=== PATIENT | female | born 1960 | race Caucasian/White ===

== ENCOUNTER 2017-08-22 11:55 | Emergency (ER) | payer OTHER ==
[~2017-08-22] VITALS: Ht 152.4 cm; Wt 86.6 kg
[2017-08-22 12:45] VITALS: BP 191/127
--- NOTE | 2017-08-22 12:50 | NUR ---
Patient to bed 02.
--- NOTE | 2017-08-22 13:03 | NUR ---
57F BIB SELF C/O HIGH BLOOD PRESSURE X 15 DAYS; PT C/O INTERMITTENT BLURRY VISION WITH DIZZINESS, BUT STATES NO BLURRY VISION AT THIS TIME; PT C/O DIARRHEA X 1 WEEK, WITH NO BOWEL MOVEMENTS YET TODAY, BUT STATES 2 EPISODES OF DIARRHEA ON 08/21/17; PT STATES NO NAUSEA OR VOMITING AT THIS TIME; ABDOMEN SOFT, NON-TENDER, ACTIVE BOWEL SOUNDS X 4 QUADRANTS; PT AA&OX4, PERRLA, BL LUNG SOUNDS CLEAR, RR EVEN/UNLABORED, SKIN IS WARM/DRY/INTACT AT THIS TIME; STEADY GAIT; PT RESTING IN BED WITH HOB ELEVATED AND IN LOWEST POSITION; POSITIONED FOR COMFORT; ER MD MADE AWARE OF STATUS. WILL CONTINUE TO MONITOR.
--- NOTE | 2017-08-22 13:26 | NUR ---
ER MD DR. GLOVER EVALUATING PT AT BEDSIDE.
[2017-08-22] MEDS ORDERED: cloNIDine 0.1 MG TAB PO ONE (13:45)
--- NOTE | 2017-08-22 14:01 | NUR ---
XRAY AT BEDSIDE.
[2017-08-22] MEDS ORDERED: LISINOPRIL 20 MG TAB PO SCH (14:10)
[2017-08-22 14:23] LABS: APPEARANCE,URINE CLEAR (CLEAR); BILIRUBIN,URINE NEGATIVE (NEGATIVE); BLOOD, URINE 1+ (NEGATIVE); LEUKOCYTE ESTERASE ,URINE NEGATIVE (NEGATIVE); NITRITE, URINE NEGATIVE (NEGATIVE); UGLUCOSE NEGATIVE (NEGATIVE)
[2017-08-22 14:25] LABS: BASOPHILS # (AUTO) 0.1 K/uL (0.00-0.22); BASOPHILS % (AUTO) 1.1 % (0.0-2.0); COLOR,URINE STRAW (YELLOW); EOSINOPHILS # (AUTO) 0.1 K/uL (0-0.4); EOSINOPHILS % (AUTO) 0.7 % (0.0-4.0); HEMATOCRIT 43.2 % (36-48); HEMOGLOBIN 14.4 g/dL (12.0-16.0); LYMPHOCYTES # (AUTO) 1.7 K/uL (2.5-16.5); LYMPHOCYTES % (AUTO) 21.2 % (20.5-51.1); MEAN CORPUSCULAR HEMOGLOBIN 30 pg (27-31); MEAN CORPUSCULAR HGB CONC 34 g/dL (33-37); MEAN CORPUSCULAR VOLUME 89 fL (80-94); MONOCYTES # (AUTO) 0.4 K/uL (0.8-1.0); MONOCYTES % (AUTO) 5.5 % (1.7-9.3); NEUTROPHILS # (AUTO) 5.8 K/uL (1.8-7.7); NEUTROPHILS % (AUTO) 71.5 % (42.2-75.2); PLATELET COUNT (AUTO) 209 K/uL (140-450); RED BLOOD CELL COUNT(AUTO) 4.86 MIL/uL (4.20-5.40); RED CELL DISTRIBUTION WIDTH 13.6 % (11.6-13.7); WHITE BLOOD COUNT (AUTO) 8.1 K/uL (4.8-10.8)
[2017-08-22 14:35] LABS: ANION GAP 11.7 (8-16); CARBON DIOXIDE 29.9 mmol/L (21-32); CREATININE 0.8 mg/dL (0.6-1.3); POTASSIUM 3.6 mmol/L (3.5-5.1)
[2017-08-22 14:38] LABS: PROTHROMBIN TIME 11.1 secs (10.8-13.4)
[2017-08-22 14:41] LABS: ALBUMIN 3.8 g/dL (3.4-5.0); TOTAL BILIRUBIN 0.3 mg/dL (0.0-1.0)
[2017-08-22 14:53] LABS: RBC,URINE 0-5 (RARE) /HPF (0-5); WBC,URINE 0-5 (RARE) /HPF (0-5)
--- NOTE | 2017-08-22 15:29 | NUR ---
PT APPEARS TO BE RESTING COMFORTABLY IN BED; POSITIONED FOR COMFORT; PT STATES NO PAIN OR DISCOMFORT AT THIS TIME; WILL CONTINUE TO MONITOR.
--- NOTE | 2017-08-22 16:00 | NUR ---
ER MD DR. GLOVER RE-EVALUATING PT AT BEDSIDE.
--- NOTE | 2017-08-22 17:00 | NUR ---
IV removed, catheter intact and site benign. Applied folded 4x4 gauze and tape to stop bleeding. PT TOLERATED PROCEDURE WELL.
[2017-08-22 17:30] VITALS: BP 137/72
--- NOTE | 2017-08-22 17:30 | NUR ---
Patient discharged with v/s stable. Written and verbal after care instructions given and explained. Patient alert, oriented and verbalized understanding of instructions. Ambulatory with steady gait. All questions addressed prior to discharge. ID band removed. Patient advised to follow up with PMD. Rx of LISINOPRIL 20MG TAB & ACETAMINOPHEN 500MG CAP given. Patient educated on indication of medication including possible reaction and side effects. Opportunity to ask questions provided and answered.
[2017-08-23] MEDS ORDERED: LISINOPRIL 20 MG TAB PO SCH (09:00)
== END 2017-08-22 17:30 | disposition home or self-care (01) ==
LOC: MED 11:55
DX: I10 Essential (primary) hypertension (principal); R51 Headache; R42 Dizziness and giddiness
CPT/HCPCS: 36415; 71010; 80053; 81001; 81025; 84484; 85025; 85610; 85730; 93005; 99285; Q0092